=== PATIENT | male | born 1955 | race African-American/Black ===

== ENCOUNTER 2017-10-22 16:31 | Emergency (ER) | payer OTHER ==
[~2017-10-22] VITALS: Ht 170.2 cm; Wt 78.9 kg
[2017-10-22 16:38] VITALS: Ht 170.2 cm; Wt 78.9 kg
[2017-10-22 18:48] VITALS: BP 124/76
== END 2017-10-22 18:48 | disposition home or self-care (01) ==
LOC: ED 16:31
DX: K59.00 Constipation, unspecified (principal); I10 Essential (primary) hypertension; E11.9 Type 2 diabetes mellitus without complications
CPT/HCPCS: Q0092